=== PATIENT | male | born 1970 | race Caucasian/White ===

== ENCOUNTER 2016-11-28 21:49 | Inpatient (IN) | payer OTHER ==
[2016-11-28 21:50] VITALS: O2SAT 100
[2016-11-28 22:00] VITALS: O2SAT 100
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
[2016-11-28] MEDS ORDERED: IOHEXOL 350 MG/ML 10 ML VIAL (for RAD DIAG) IVCONTRAST ONE (22:14)
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
[2016-11-28 22:24] LABS: I-STAT POTASSIUM 3.7 MMOL/L (3.5-4.9)
[2016-11-28 22:25] LABS: BASOPHIL # 0.1 TH/MM3 (0-0.2); BASOPHIL % 0.9 % (0.0-2.0); EOSINOPHIL # 0.2 TH/MM3 (0-0.4); EOSINOPHIL % 1.7 % (0.0-4.0); HEMATOCRIT 45.4 % (39.0-51.0); HEMO FLAGS DIFF FINAL; LYMPH % 28.6 % (9.0-44.0); LYMPHOCYTE # 3.2 TH/MM3 (1.0-4.8); MEAN CELL VOLUME 89.3 FL (80.0-100.0); MEAN CORPUSCULAR HEMOGLOBIN 30.2 PG (27.0-34.0); MEAN CORPUSCULAR HGB CONC 33.8 % (32.0-36.0); MONO % 6.2 % (0.0-8.0); NEUT % 62.6 % (16.0-70.0); PLATELET COUNT 257 TH/MM3 (150-450); RED BLOOD COUNT 5.09 MIL/MM3 (4.50-5.90); RED CELL DISTRIBUTION WIDTH 13.1 % (11.6-17.2); WHITE BLOOD COUNT 11.2 TH/MM3 (4.0-11.0)
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
[2016-11-28 22:30] VITALS: O2SAT 100
[2016-11-28 22:40] LABS: APTT (PATIENT) 22.4 SEC (24.3-30.1); INTERNATIONAL NORMALIZED RATIO 0.9 RATIO; PROTHROMBIN TIME - PATIENT 10.2 SEC (9.8-11.6)
[2016-11-28] MEDS ORDERED: CHLORHEXIDINE GLUCONATE 2 % 1 PACK (2 CLOTHS) TOP PRN (22:45)
[2016-11-28] MEDS ORDERED: MISCELLANEOUS NURSING INFORMATION XX SCH (22:45)
[2016-11-28] MEDS ORDERED: SODIUM CHLORIDE 0.9% FLUSH 10 ML FLUSH IV FLUSH PRN (22:45)
[2016-11-28] MEDS ORDERED: ENALAPRILAT 1.25 MG/ML VIAL IV PRN (22:45)
[2016-11-28] MEDS ORDERED: ONDANSETRON HCL 4 MG/2 ML VIAL IV PRN (22:45)
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
[2016-11-28] MEDS: SODIUM CHLOR 0.9% 1000 ML INJ 1,000 ML IV SCH (22:56)
[2016-11-28] MEDS: CHLORHEXIDINE GLUCONATE 2 % 1 PACK (2 CLOTHS) TOP SCH (22:57)
[2016-11-28 23:20] LABS: BLOOD, URINE MOD (NEG); GLUCOSE,URINE NEG (NEG); KETONE, URINE NEG (NEG); MUCUS URINE FEW /lpf (OCC); NITRITE,URINE NEG (NEG); PH, URINE 5.5 (5.0-8.5); URINE COLOR YELLOW (YELLW/STRAW)
[2016-11-28 23:24] LABS: COMMENT (UR) CATH-CULT NOT IND; CULTURE IF INDICATED CATH CULTURE NOT IND
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
--- NOTE | 2016-11-28 23:56 | PD.PROCEDR ---
Procedure Note Procedure Subclavian central line placement A time-out was completed verifying correct patient, procedure, site, positioning , and special equipment if applicable. The patient was placed in a dependent position appropriate for central line placement based on the vein to be cannulated. The patients left shoulder was prepped and draped in sterile fashion. 1% Lidocaine was used to anesthetize the surrounding skin area. A triple lumen 9-[place] Cordis catheter was introduced into the the left subclavian vein using the Seldinger technique. The catheter was threaded smoothly over the guide wire and appropriate blood return was obtained. Each lumen of the catheter was evacuated of air and flushed with sterile saline. The catheter was then sutured in place to the skin and a sterile dressing applied. Perfusion to the extremity distal to the point of catheter insertion was checked and found to be adequate. Estimated Blood Loss: 1ml The patient tolerated the procedure well and there were no complications. Moise Licea MD Nov 28, 2016 23:56
--- NOTE | 2016-11-28 23:56 | PD.PROCEDR ---
Procedure Note Procedure Procedure: CHEST TUBE Indication: Left Large pneumothorax Performed by: Moise Rhoades time out procedure was performed Initials Consent obtained JV Correct patient JV Correct procedure JV Correct site JV Correct positioning JV Correct supplies JV Patient was positioned, prepped and draped in usual sterile fashion. ccs 1% Lidocaine was used to anesthetize the area. An incision was made and blunt dissection was performed and curved forceps were used to enter the pleural space. A 10 fr chest tube was placed to 15cm. The tube was secured and taped. A chest xray was ordered to evaluate for placement of the chest tube. A pigtail catheter was placed using the seldinger technique. Initial Fluid Removed: 50 milliliters Patient tolerated the procedure well and there were no complications. Moise Licea MD Nov 28, 2016 23:56
[2016-11-28] MEDS: PANTOPRAZOLE SODIUM 40 MG VIAL IVP SCH (23:59)
[2016-11-29] VITALS (20 sets, daily range): BP systolic 98–159; BP diastolic 57–93; PULSE 60–87; RESP 14–16; TEMP 99.7–100.2; O2SAT 96–100
[2016-11-29] MEDS ORDERED: fentaNYL DRIP 250 ML IV PRN
[2016-11-29] MEDS ORDERED: PROPOFOL 1000 MG/100 ML INJ 100 ML IV PRN
[2016-11-29 00:02] LABS: BLOOD GAS CARBOXYHEMOGLOBIN 1.1 % (0-4); BLOOD GAS HCO3 25 mmol/L (22-26); BLOOD GAS METHEMOGLOBIN 0.8 % (0-2); BLOOD GAS O2 HGB SATURATION 97 % (90-100); BLOOD GAS OXYGEN CONTENT 20.2 Vol % (12.0-20.0); BLOOD GAS PCO2 48 mmHg (38-42); BLOOD GAS PO2 147 mmHg (61-120); BLOOD GAS TOTAL HGB 14.6 G/DL (12.0-16.0); CRITICAL VALUE NO; DRAW SITE RT RADIAL; FIO2 50 %; NUMBER OF ARTERIAL PUNCTURES 1; OXYGEN DEVICE VENTILATOR; STAT NO; TEMP CORR TO 98.6; ULNAR PULSE PRESENT; VENT SETTINGS 14/550/5PEEP
[2016-11-29] MEDS: fentaNYL 2,500 MCG/NS 250 ML IV SCH ×2 (00:34→10:30)
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
[2016-11-29] MEDS: PROPOFOL 1000 MG/100 ML IV SCH ×4 (00:57→12:01)
[2016-11-29] MEDS: levETIRAcetam INJ 750 MG in SODIUM CHLORIDE 0.9% INJ 100 ML IV SCH ×2 (03:14→16:15)
--- NOTE | 2016-11-29 05:05 | RADRPT ---
EXAM DATE/TIME: 11/29/2016 04:14 [facility] COMPARISON: No previous studies available for comparison. INDICATIONS : Follow up trauma. RADIATION DOSE: 56.35 CTDIvol (mGy) ; Tabletop CT Head MEDICAL HISTORY : Non-responsive. SURGICAL HISTORY : Non-responsive. ENCOUNTER: Subsequent ACUITY: 1 day PAIN SCALE: Non-responsive LOCATION: cranial TECHNIQUE: Multiple contiguous axial images were obtained of the head. Using automated exposure control and adj ustment of the mA and/or kV according to patient size, radiation dose was kept as low as reasonably a chievable to obtain optimal diagnostic quality images. DICOM format image data is available electro nically for review and comparison. FINDINGS: CEREBRUM: The ventricles are normal in size for age. There may be a small amount of hemorrhage in the left occi pital horn. Previously noted subarachnoid hemorrhage on the right is slightly less apparent on the cu rrent exam. No extra-axial fluid collections are seen. POSTERIOR FOSSA: The cerebellum and brainstem are intact. The 4th ventricle is midline. The cerebellopontine angle i s unremarkable. EXTRACRANIAL: The visualized portion of the orbits is intact. SKULL: The calvaria is intact. No evidence of skull fracture. CONCLUSION: 1. Previously noted small subarachnoid hemorrhage in the right parietal region is slightly less appar ent on the current exam. There is also trace intraventricular hemorrhage on the left posteriorly. No mass effect or shift. No hydrocephalus. Rufino Gonsalez MD on November 29, 2016 at 5:00 Board Certified Radiologist. This report was verified electronically.
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
--- NOTE | 2016-11-29 05:50 | RADRPT ---
EXAM DATE/TIME: 11/29/2016 03:43 [facility] COMPARISON: CHEST SINGLE AP, November 28, 2016, 23:48. INDICATIONS : Evaluate for pneumothorax MEDICAL HISTORY : None. SURGICAL HISTORY : None. ENCOUNTER: Subsequent ACUITY: 2 days PAIN SCORE: Non-responsive. LOCATION: Bilateral chest FINDINGS: A single view of the chest demonstrates endotracheal tube in size and position. NG in the stomach. Ce ntral line in superior vena cava. Subsegmental basilar airspace disease. Small caliber left chest tub e without pneumothorax. CONCLUSION: 1. Small caliber left chest tube present without pneumothorax. Subsegmental basilar airspace disease. Endotracheal tube, nasogastric tube and left central line in good position. Rufino Gonsalez MD on November 29, 2016 at 5:47 Board Certified Radiologist. This report was verified electronically.
[2016-11-29 05:56] LABS: AUTOMATED NEUTROPHIL # 6.6 TH/MM3 (1.8-7.7); BASOPHIL % 0.4 % (0.0-2.0); EOSINOPHIL % 0.2 % (0.0-4.0); HEMATOCRIT 38.1 % (39.0-51.0); HEMO FLAGS DIFF FINAL; LYMPH % 9.3 % (9.0-44.0); LYMPHOCYTE # 0.7 TH/MM3 (1.0-4.8); MEAN CELL VOLUME 88.3 FL (80.0-100.0); MEAN CORPUSCULAR HEMOGLOBIN 30.8 PG (27.0-34.0); MEAN CORPUSCULAR HGB CONC 34.9 % (32.0-36.0); MONO % 7.7 % (0.0-8.0); NEUT % 82.4 % (16.0-70.0); PLATELET COUNT 172 TH/MM3 (150-450); RED BLOOD COUNT 4.32 MIL/MM3 (4.50-5.90); RED CELL DISTRIBUTION WIDTH 12.9 % (11.6-17.2)
[2016-11-29 06:38] LABS: ANION GAP 7 MEQ/L (5-15); AST (GOT) 49 U/L (15-37); BICARBONATE 26.4 MEQ/L (21.0-32.0); BLOOD UREA NITROGEN 15 MG/DL (7-18); CHLORIDE 106 MEQ/L (98-107); GLOMERULAR FILTRATION RATE 38 ML/MIN (>89); POTASSIUM 3.9 MEQ/L (3.5-5.1); SODIUM (NA) 139 MEQ/L (136-145)
[2016-11-29 06:40] LABS: ALT (GPT) 50 U/L (12-78)
[2016-11-29 06:42] LABS: ALKALINE PHOSPHATASE 44 U/L (45-117); TOTAL BILIRUBIN ADULT 0.5 MG/DL (0.2-1.0)
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
[2016-11-29] MEDS: SODIUM CHLOR 0.9% 1000 ML INJ 1,000 ML IV SCH ×2 (08:38→18:40)
[2016-11-29] MEDS: BACITRACIN TOP OINT 15 GM TUBE TOP SCH ×2 (09:00→21:00)
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
[2016-11-29] MEDS ORDERED: PROPOFOL 1000 MG/100 ML IV PRN (15:45)
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
[2016-11-29] MEDS ORDERED: RESP: ALBUTEROL 2.5 MG/IPRATROPIUM 0.5 MG NEB (PRN) NEB (17:00)
[2016-11-29] MEDS ORDERED: BISACODYL 10 MG SUPP RECTAL PRN (17:00)
[2016-11-29] MEDS: LACTULOSE SYRUP 20 GM/30 ML CUP PO SCH (18:28)
[2016-11-29] MEDS: CHLORHEXIDINE 0.12% (ORAL KIT) 15 ML CUP MT SCH (19:37)
[2016-11-29] MEDS: DOCUSATE SODIUM 50 MG/SENNA 8.6 MG TAB PO SCH (21:38)
[2016-11-29] MEDS: RESP: ALBUTEROL 2.5 MG/IPRATROPIUM 0.5 MG NEB (SCH) NEB (21:53)
[2016-11-29] MEDS: PANTOPRAZOLE SODIUM 40 MG VIAL IVP SCH (22:00)
[2016-11-30] VITALS (18 sets, daily range): BP systolic 135–155; BP diastolic 72–92; PULSE 67–108; RESP 12–27; TEMP 98–100; O2SAT 94–100
[2016-11-30] MEDS: levETIRAcetam INJ 500 MG in SODIUM CHLORIDE 0.9% INJ 100 ML IV SCH ×2 (02:33→14:04)
[2016-11-30] MEDS ORDERED: levETIRAcetam INJ 500 MG in SODIUM CHLORIDE 0.9% INJ 100 ML IV SCH (03:00)
[2016-11-30] MEDS: RESP: ALBUTEROL 2.5 MG/IPRATROPIUM 0.5 MG NEB (SCH) NEB ×4 (03:32→21:58)
[2016-11-30] MEDS: CHLORHEXIDINE GLUCONATE 2 % 1 PACK (2 CLOTHS) TOP SCH (04:00)
[2016-11-30] MEDS: SODIUM CHLOR 0.9% 1000 ML INJ 1,000 ML IV SCH ×2 (04:39→14:05)
[2016-11-30 05:14] LABS: AUTOMATED NEUTROPHIL # 5.8 TH/MM3 (1.8-7.7); BASOPHIL % 0.3 % (0.0-2.0); EOSINOPHIL # 0.1 TH/MM3 (0-0.4); EOSINOPHIL % 1.4 % (0.0-4.0); HEMO FLAGS DIFF FINAL; LYMPHOCYTE # 0.8 TH/MM3 (1.0-4.8); MEAN CELL VOLUME 88.9 FL (80.0-100.0); MEAN CORPUSCULAR HGB CONC 33.8 % (32.0-36.0); MONO % 8.1 % (0.0-8.0); NEUT % 79.2 % (16.0-70.0); PLATELET COUNT 134 TH/MM3 (150-450); RED BLOOD COUNT 4.05 MIL/MM3 (4.50-5.90); RED CELL DISTRIBUTION WIDTH 12.9 % (11.6-17.2); WHITE BLOOD COUNT 7.3 TH/MM3 (4.0-11.0)
[2016-11-30 05:45] LABS: ANION GAP 6 MEQ/L (5-15); AST (GOT) 28 U/L (15-37); BICARBONATE 26.1 MEQ/L (21.0-32.0); BLOOD UREA NITROGEN 13 MG/DL (7-18); CHLORIDE 110 MEQ/L (98-107); GLOMERULAR FILTRATION RATE 57 ML/MIN (>89); POTASSIUM 3.7 MEQ/L (3.5-5.1); SODIUM (NA) 142 MEQ/L (136-145)
[2016-11-30 05:46] LABS: ALT (GPT) 35 U/L (12-78)
[2016-11-30 05:48] LABS: ALKALINE PHOSPHATASE 42 U/L (45-117); TOTAL BILIRUBIN ADULT 0.5 MG/DL (0.2-1.0)
--- NOTE | 2016-11-30 06:13 | RADRPT ---
EXAM DATE/TIME: 11/30/2016 04:48 [facility] COMPARISON: CHEST SINGLE AP, November 29, 2016, 3:43. INDICATIONS : Short of breath. MEDICAL HISTORY : None. SURGICAL HISTORY : None. ENCOUNTER: Subsequent ACUITY: 3 days PAIN SCORE: Non-responsive. LOCATION: Bilateral chest FINDINGS: Small caliber left chest tube present without significant pneumothorax. The left central line is in s uperior vena cava. Nasogastric tube coiled in the stomach. Endotracheal tube in good position. Minima l basilar subsegmental opacity slightly improved from November 29. No significant effusion. CONCLUSION: 1. Support apparatus in satisfactory position. Small caliber left chest tube without pneumothorax. Mi nimal basilar atelectasis. Rufino Gonsalez MD on November 30, 2016 at 6:09 Board Certified Radiologist. This report was verified electronically.
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
[2016-11-30] MEDS ORDERED: ATOR10TA15 PO (09:48)
[2016-11-30] MEDS: DOCUSATE SODIUM 50 MG/SENNA 8.6 MG TAB PO SCH ×2 (09:50→20:43)
[2016-11-30] MEDS: LACTULOSE SYRUP 20 GM/30 ML CUP PO SCH (09:51)
[2016-11-30] MEDS: CHLORHEXIDINE 0.12% (ORAL KIT) 15 ML CUP MT SCH (09:51)
[2016-11-30] MEDS: BACITRACIN TOP OINT 15 GM TUBE TOP SCH ×2 (09:51→20:45)
--- NOTE | 2016-11-30 10:23 | HHI.PR ---
Neuropsych Emotional Emotional: UnabletoAssess: Emotional, Anxious/Fearful, Depressed/Sad, Hostile/ Resentful, Irritable/Angry/Frustrate, Labile, Constricted/Blunted Behavior Behavior: Intact: Impulsive/Agitated Cognitive Cognitive: Unable to Asses: Cognitive, Attention/Concentration, Confused/ Orientation, Insight/Awareness, Judgement/Problem-Solving, Memory Psychosocial Psychosocial: Unable to Asses: Psychosocial, Family/Other Adjustment, Realistic Expectation, Self-Esteem/Confidence Progress Notes/Response to Tx Contents of Sessions: Adjustment, Level of Consciousness Time with Patient: 15 minutes Premorbid psychological status Premorbid Cognitive, Emotional and Behavioral Status: Unable to Assess. The patient was intubated but awake, but not able to respond to questions. Behavioral Reactions of Patient and Family/Support System: Deferred. The patients family is experiencing ongoing issues of adjustment given the nature of the injury, and this aspect of recovery will require ongoing monitoring. Emotional/Behavioral Status of Patient and Family/Support System: Deferred. Pertinent issues, if appropriate to this patients clinical care, are described in detail above. Maximizing acute care outcome It is recommended that the patient be monitored for emergent behavioral impulsivity as the medical condition evolves. This patients neuropathological challenges may limit their rehabilitation potential going forward, and these challenges will require specialized therapeutic skills to maximize outcome. Additionally, the patients family is experiencing ongoing issues of adjustment given the traumatic nature of the injury, and they may benefit from ongoing psychological assistance. Anticipated Problems Ongoing areas of concern will include behavioral impulsivity, lack of insight and judgment, which is expected to improve with time and treatment. Presently , the patient remains intubated but awake. Treatment Plan This clinician will continue to follow with you throughout the course of this patients acute care treatment, and I will be available to meet with the patient s family/support system to facilitate their understanding and the ongoing care of their family member. The goals of neuropsychological intervention shall be both educational and supportive to the family/support system as is deemed clinically appropriate. [facility] Level: V:Confused-non agitated Impression This patient suffered a traumatic brain injury and is presently intubated and sedated. Diagnosis: (1) Major neurocognitive disorder as late effect of traumatic brain injury without behavioral disturbance Progress Note Narrative Ongoing follow-up of patient seen during daily trauma rounds. This is day 2 post injury. The patient is awake, somewhat alert and follows basic commands. He remains intubated. He appears neurobehaviorally consistent with a [place]. I will continue to follow. Panchito Bains PhD Nov 30, 2016 10:23 am
[2016-11-30] MEDS: fentaNYL 2,500 MCG/NS 250 ML IV SCH (10:47)
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
[2016-11-30] MEDS: ACETAMINOPHEN 1000 MG/100 ML VIAL IV SCH ×2 (12:27→17:58)
[2016-11-30] MEDS: HYDROmorphone HCL PF 1 MG/ML VIAL IV PUSH PRN ×3 (13:13→20:44)
[2016-11-30] MEDS: METHOCARBAMOL 500 MG TAB PO SCH ×2 (13:13→22:10)
[2016-11-30] MEDS ORDERED: REMOVE OLD PATCH T-DERMAL SCH (14:00)
[2016-11-30] MEDS ORDERED: fentaNYL 50 MCG/HR PATCH TOPICAL SCH (14:00)
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
[2016-11-30] MEDS ORDERED: HYDROmorphone HCL PF 1 MG/ML VIAL IV PUSH ONE (15:45)
[2016-11-30] MEDS ORDERED: SUCRALFATE 1 GM/10 ML CUP PO PRN (18:00)
[2016-11-30] MEDS: ATORVASTATIN 10 MG TAB PO SCH (20:44)
[2016-11-30] MEDS: PANTOPRAZOLE SODIUM 40 MG VIAL IVP SCH (22:10)
[2016-12-01] VITALS (7 sets, daily range): BP systolic 151–186; BP diastolic 88–97; PULSE 71–88; RESP 16–22; TEMP 97.8–98.3; O2SAT 92–97
[2016-12-01] MEDS: HYDROmorphone HCL PF 1 MG/ML VIAL IV PUSH PRN ×2 (01:43→04:58)
[2016-12-01] MEDS: ACETAMINOPHEN 1000 MG/100 ML VIAL IV SCH ×2 (01:43→05:01)
[2016-12-01] MEDS: levETIRAcetam INJ 500 MG in SODIUM CHLORIDE 0.9% INJ 100 ML IV SCH ×2 (03:15→15:05)
[2016-12-01] MEDS: CHLORHEXIDINE GLUCONATE 2 % 1 PACK (2 CLOTHS) TOP SCH (04:00)
[2016-12-01] MEDS: METHOCARBAMOL 500 MG TAB PO SCH ×3 (04:58→22:30)
--- NOTE | 2016-12-01 06:58 | RADRPT ---
EXAM DATE/TIME: 12/01/2016 06:23 [facility] COMPARISON: CHEST SINGLE AP, November 30, 2016, 4:48. INDICATIONS : Pneumothorax. MEDICAL HISTORY : Chest tube, left. SURGICAL HISTORY : None. ENCOUNTER: Subsequent ACUITY: 3 days PAIN SCORE: 4/10 LOCATION: Left chest FINDINGS: A single view of the chest demonstrates left central line superior vena cava. Basilar airspace diseas e, left greater than right. Small caliber left chest tube without pneumothorax. Extubation. CONCLUSION: 1. Interval extubation. Mild basilar airspace disease. Left chest tube without pneumothorax. Left billy tral line in superior vena cava. Rufino Gonsalez MD on December 01, 2016 at 6:56 Board Certified Radiologist. This report was verified electronically.
[2016-12-01 07:12] LABS: AUTOMATED NEUTROPHIL # 6.8 TH/MM3 (1.8-7.7); BASOPHIL % 0.2 % (0.0-2.0); EOSINOPHIL # 0.1 TH/MM3 (0-0.4); HEMATOCRIT 34.8 % (39.0-51.0); LYMPH % 7.7 % (9.0-44.0); LYMPHOCYTE # 0.6 TH/MM3 (1.0-4.8); MEAN CELL VOLUME 89.1 FL (80.0-100.0); MEAN CORPUSCULAR HEMOGLOBIN 30.2 PG (27.0-34.0); MEAN CORPUSCULAR HGB CONC 33.9 % (32.0-36.0); MONO % 7.8 % (0.0-8.0); NEUT % 83.3 % (16.0-70.0); PLATELET COUNT 118 TH/MM3 (150-450); RED CELL DISTRIBUTION WIDTH 12.9 % (11.6-17.2); WHITE BLOOD COUNT 8.1 TH/MM3 (4.0-11.0)
[2016-12-01 07:21] LABS: HEMO FLAGS AUTO DIFF
[2016-12-01 07:33] LABS: ANION GAP 6 MEQ/L (5-15); AST (GOT) 50 U/L (15-37); BICARBONATE 27.4 MEQ/L (21.0-32.0); BLOOD UREA NITROGEN 8 MG/DL (7-18); CHLORIDE 104 MEQ/L (98-107); GLOMERULAR FILTRATION RATE 64 ML/MIN (>89); POTASSIUM 3.6 MEQ/L (3.5-5.1); SODIUM (NA) 137 MEQ/L (136-145)
[2016-12-01 07:34] LABS: ALT (GPT) 35 U/L (12-78)
[2016-12-01 07:37] LABS: ALKALINE PHOSPHATASE 40 U/L (45-117); TOTAL BILIRUBIN ADULT 0.8 MG/DL (0.2-1.0)
[2016-12-01] MEDS: DOCUSATE SODIUM 50 MG/SENNA 8.6 MG TAB PO SCH ×2 (08:19→19:41)
[2016-12-01] MEDS: LACTULOSE SYRUP 20 GM/30 ML CUP PO SCH (08:19)
[2016-12-01] MEDS: RESP: ALBUTEROL 2.5 MG/IPRATROPIUM 0.5 MG NEB (SCH) NEB ×3 (08:55→22:04)
[2016-12-01 09:28] LABS: SCAN/DIFF AUTO DIFF CONFIRMED
[2016-12-01] MEDS ORDERED: BISACODYL 10 MG SUPP RECTAL ONE (09:30)
[2016-12-01] MEDS ORDERED: BISACODYL EC 5 MG TABEC PO ONE (09:30)
[2016-12-01] MEDS: oxyCODONE/ACETAMINOPHEN 5 MG/325 MG TAB PO PRN ×4 (10:01→23:43)
[2016-12-01] MEDS: BACITRACIN TOP OINT 15 GM TUBE TOP SCH ×2 (10:02→19:42)
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
--- NOTE | 2016-12-01 10:54 | HHI.PR ---
Neuropsych Behavior Behavior: Intact: Coping/Acceptance, Cooperative w/ Treatment, Motivation Cognitive Cognitive: Mild: Insight/Awareness, Moderate: Attention/Concentration, Confused /Orientation Progress Notes/Response to Tx Contents of Sessions: Adjustment, Level of Consciousness Time with Patient: 15 minutes Premorbid psychological status Premorbid Cognitive, Emotional and Behavioral Status: Unable to Assess. The patient was intubated but awake, but not able to respond to questions. Behavioral Reactions of Patient and Family/Support System: Deferred. The patients family is experiencing ongoing issues of adjustment given the nature of the injury, and this aspect of recovery will require ongoing monitoring. Emotional/Behavioral Status of Patient and Family/Support System: Deferred. Pertinent issues, if appropriate to this patients clinical care, are described in detail above. Maximizing acute care outcome It is recommended that the patient be monitored for emergent behavioral impulsivity as the medical condition evolves. This patients neuropathological challenges may limit their rehabilitation potential going forward, and these challenges will require specialized therapeutic skills to maximize outcome. Additionally, the patients family is experiencing ongoing issues of adjustment given the traumatic nature of the injury, and they may benefit from ongoing psychological assistance. Anticipated Problems Ongoing areas of concern will include behavioral impulsivity, lack of insight and judgment, which is expected to improve with time and treatment. Presently , the patient remains intubated but awake. Treatment Plan This clinician will continue to follow with you throughout the course of this patients acute care treatment, and I will be available to meet with the patient s family/support system to facilitate their understanding and the ongoing care of their family member. The goals of neuropsychological intervention shall be both educational and supportive to the family/support system as is deemed clinically appropriate. [facility] Level: V:Confused-non agitated Impression This patient suffered a traumatic brain injury and is presently intubated and sedated. Diagnosis: (1) Major neurocognitive disorder as late effect of traumatic brain injury without behavioral disturbance Progress Note Narrative Ongoing follow-up of patient seen in daily trauma rounds. This is day 3 post injury. The patient is awake, alert but oriented only to person, place and situation. He is off sedation and extubated and neurologically intact. He is presently at [facility]. I will continue to follow.. Panchito Bains PhD Dec 01, 2016 10:54 am
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
[2016-12-01] MEDS: ATORVASTATIN 10 MG TAB PO SCH (19:41)
[2016-12-01] MEDS: PANTOPRAZOLE SODIUM 40 MG VIAL IVP SCH (23:00)
[2016-12-02] VITALS: BP 145/84; PULSE 87; RESP 20; TEMP 98.6; O2SAT 94
[2016-12-02] MEDS: levETIRAcetam INJ 500 MG in SODIUM CHLORIDE 0.9% INJ 100 ML IV SCH (03:09)
[2016-12-02] MEDS: oxyCODONE/ACETAMINOPHEN 5 MG/325 MG TAB PO PRN ×4 (03:34→20:17)
[2016-12-02] MEDS: RESP: ALBUTEROL 2.5 MG/IPRATROPIUM 0.5 MG NEB (SCH) NEB ×4 (03:36→20:22)
[2016-12-02] MEDS: METHOCARBAMOL 500 MG TAB PO SCH ×3 (05:35→21:38)
--- NOTE | 2016-12-02 07:20 | RADRPT ---
EXAM DATE/TIME: 12/02/2016 05:59 [facility] COMPARISON: CHEST SINGLE AP, December 01, 2016, 6:23. INDICATIONS : Short of breath, chest pain, evaluate pneumothorax MEDICAL HISTORY : SAH, pneumothorax, rib fracture SURGICAL HISTORY : None. ENCOUNTER: Subsequent ACUITY: 4 - 6 days PAIN SCORE: Non-responsive. LOCATION: Bilateral chest FINDINGS: Left subclavian central catheter line has been removed as well as left chest tube. There is persisten t airspace disease in the left base greater than the right the latter which is minimal. CONCLUSION: Removal left central venous catheter and left chest tube. Residual mild left basilar airspace disease Gm Crowley MD on December 02, 2016 at 7:17 Board Certified Radiologist. This report was verified electronically.
[2016-12-02 07:30] VITALS: BP 162/93; PULSE 78; RESP 16; TEMP 98.1; O2SAT 91
[2016-12-02 07:31] LABS: AUTOMATED NEUTROPHIL # 5.4 TH/MM3 (1.8-7.7); BASOPHIL % 0.6 % (0.0-2.0); EOSINOPHIL # 0.2 TH/MM3 (0-0.4); EOSINOPHIL % 2.8 % (0.0-4.0); LYMPH % 8.5 % (9.0-44.0); LYMPHOCYTE # 0.6 TH/MM3 (1.0-4.8); MEAN CELL VOLUME 87.6 FL (80.0-100.0); MEAN CORPUSCULAR HEMOGLOBIN 30.1 PG (27.0-34.0); MEAN CORPUSCULAR HGB CONC 34.3 % (32.0-36.0); MONO % 10.2 % (0.0-8.0); NEUT % 77.9 % (16.0-70.0); PLATELET COUNT 136 TH/MM3 (150-450); RED BLOOD COUNT 3.99 MIL/MM3 (4.50-5.90); RED CELL DISTRIBUTION WIDTH 12.7 % (11.6-17.2); WHITE BLOOD COUNT 6.9 TH/MM3 (4.0-11.0)
[2016-12-02 08:00] VITALS: BP 149/90; PULSE 69; RESP 16; TEMP 98.4; O2SAT 93
[2016-12-02 08:02] LABS: ANION GAP 5 MEQ/L (5-15); AST (GOT) 69 U/L (15-37); BICARBONATE 29.5 MEQ/L (21.0-32.0); BLOOD UREA NITROGEN 7 MG/DL (7-18); CHLORIDE 101 MEQ/L (98-107); GLOMERULAR FILTRATION RATE 71 ML/MIN (>89); POTASSIUM 3.3 MEQ/L (3.5-5.1); SODIUM (NA) 135 MEQ/L (136-145)
[2016-12-02 08:03] LABS: ALT (GPT) 44 U/L (12-78)
[2016-12-02 08:04] LABS: HEMO FLAGS AUTO DIFF
[2016-12-02 08:05] LABS: ALKALINE PHOSPHATASE 46 U/L (45-117); TOTAL BILIRUBIN ADULT 0.8 MG/DL (0.2-1.0)
[2016-12-02] MEDS ORDERED: POTASSIUM CHLORIDE 25 MEQ EFFERVESCENT TAB PO ONE (08:45)
[2016-12-02] MEDS: BACITRACIN TOP OINT 15 GM TUBE TOP SCH ×2 (09:00→20:11)
[2016-12-02 09:03] LABS: PLATELET ESTIMATE SMEAR LOW (NORMAL); PLATELET MORPHOLOGY ENLARGED (NORMAL); SCAN/DIFF AUTO DIFF CONFIRMED
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
[2016-12-02] MEDS: LACTULOSE SYRUP 20 GM/30 ML CUP PO SCH (09:26)
[2016-12-02] MEDS: DOCUSATE SODIUM 50 MG/SENNA 8.6 MG TAB PO SCH ×2 (09:27→20:11)
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
[2016-12-02 13:10] VITALS: BP 153/87; PULSE 83; RESP 16; TEMP 97; O2SAT 93
[2016-12-02] MEDS ORDERED: SUCR1S PO (13:41)
[2016-12-02] MEDS ORDERED: Lactulose Liq PO (13:41)
[2016-12-02] MEDS ORDERED: METH500T3 PO (13:41)
[2016-12-02] MEDS ORDERED: LEVE500 PO (13:41)
[2016-12-02] MEDS ORDERED: SENN1TAB PO (13:41)
[2016-12-02] MEDS ORDERED: FAMO20TA2 PO (13:41)
[2016-12-02] MEDS: QUEtiapine FUMARATE 25 MG TAB PO SCH ×2 (14:08→21:38)
[2016-12-02 20:00] VITALS: BP 169/96; PULSE 87; RESP 20; TEMP 99.8; O2SAT 93
[2016-12-02] MEDS: FAMOTIDINE 20 MG TAB PO SCH (20:11)
[2016-12-02] MEDS: ATORVASTATIN 10 MG TAB PO SCH (20:11)
[2016-12-02] MEDS: levETIRAcetam 500 MG TAB PO SCH (20:11)
[2016-12-03] VITALS: BP 159/94; PULSE 69; RESP 20; TEMP 99.2; O2SAT 93
[2016-12-03] MEDS: QUEtiapine FUMARATE 25 MG TAB PO SCH ×2 (04:26→14:45)
[2016-12-03] MEDS: METHOCARBAMOL 500 MG TAB PO SCH ×2 (04:26→14:45)
[2016-12-03] MEDS: oxyCODONE/ACETAMINOPHEN 5 MG/325 MG TAB PO PRN ×4 (04:26→15:11)
[2016-12-03] MEDS: RESP: ALBUTEROL 2.5 MG/IPRATROPIUM 0.5 MG NEB (SCH) NEB ×3 (04:28→16:02)
[2016-12-03 04:29] VITALS: O2SAT 92
[2016-12-03 08:20] VITALS: BP 154/102; PULSE 67; RESP 10; TEMP 97; O2SAT 95
[2016-12-03] MEDS: LACTULOSE SYRUP 20 GM/30 ML CUP PO SCH (10:10)
[2016-12-03] MEDS: levETIRAcetam 500 MG TAB PO SCH (10:10)
[2016-12-03] MEDS: FAMOTIDINE 20 MG TAB PO SCH (10:10)
[2016-12-03] MEDS: DOCUSATE SODIUM 50 MG/SENNA 8.6 MG TAB PO SCH (10:10)
[2016-12-03] MEDS: BACITRACIN TOP OINT 15 GM TUBE TOP SCH (10:12)
[2016-12-03] MEDS ORDERED: OXYC1TAB63 PO (10:20)
[2016-12-03 11:40] VITALS: PULSE 90; RESP 20; TEMP 98.3; O2SAT 94
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
[2016-12-03 12:00] VITALS: BP 154/82; PULSE 86; RESP 12; TEMP 97.4; O2SAT 92
[2016-12-03 12:22] VITALS: RESP 18
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
[2016-12-03] MEDS ORDERED: QUET1TAB7 PO (12:33)
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
[2016-12-03] MEDS ORDERED: QUEtiapine FUMARATE 25 MG TAB PO SCH (21:00)
[2016-12-16] MEDS ORDERED: SENN1TAB PO (10:35)
[2016-12-16] MEDS ORDERED: TRAZ50TA12 PO (10:35)
[2016-12-16] MEDS ORDERED: ATOR10TA15 PO (10:35)
[2016-12-16] MEDS ORDERED: LEVE500 PO (10:35)
[2016-12-16] MEDS ORDERED: FAMO20TA2 PO (10:35)
[2016-12-16] MEDS ORDERED: OXYC-392 PO (10:35)
[2016-12-16] MEDS ORDERED: QUET1TAB7 PO (10:35)
== END 2016-12-03 16:41 | DRG 963 ==
LOC: NEPI 21:49 → EDBD 22:38 → NEDA 22:38 → N03A 22:44 → N07A 11-30 22:25
PROVIDERS: ADMIT Surgery; ATTEND Surgery
PROC: 05H633Z Insertion of Infusion Device into Left Subclavian Vein, Percutaneous Approach (ICD-10-PCS; principal; 2016-11-28)
PROC: 5A1945Z Respiratory Ventilation, 24-96 Consecutive Hours (ICD-10-PCS; 2016-11-28)
PROC: 0T9B70Z Drainage of Bladder with Drainage Device, Via Natural or Artificial Opening (ICD-10-PCS; 2016-11-28)
PROC: 0W9B30Z Drainage of Left Pleural Cavity with Drainage Device, Percutaneous Approach (ICD-10-PCS; 2016-11-28)
DX: S06.6X0A Traumatic subarachnoid hemorrhage without loss of consciousness, initial encounter (principal); J96.00 Acute respiratory failure, unspecified whether with hypoxia or hypercapnia; S36.039A Unspecified laceration of spleen, initial encounter; S27.2XXA Traumatic hemopneumothorax, initial encounter; J69.0 Pneumonitis due to inhalation of food and vomit; S22.42XA Multiple fractures of ribs, left side, initial encounter for closed fracture; S27.322A Contusion of lung, bilateral, initial encounter; S37.012A Minor contusion of left kidney, initial encounter; S37.032A Laceration of left kidney, unspecified degree, initial encounter; V28.4XXA Motorcycle driver injured in noncollision transport accident in traffic accident, initial encounter; Y93.89 Activity, other specified; Y92.410 Unspecified street and highway as the place of occurrence of the external cause; Y90.3 Blood alcohol level of 60-79 mg/100 ml; S00.01XA Abrasion of scalp, initial encounter; F02.80 Dementia in other diseases classified elsewhere, unspecified severity, without behavioral disturbance, psychotic disturbance, mood disturbance, and anxiety
CPT/HCPCS: 32551; 36556; 36600; 70450; 71010; 71260; 72125; 72170; 74177; 80053; 80307; 81001; 82435; 82565; 82805; 82947; 84132; 84295; 84520; 85025; 85610; 85730; 86850; 86900; 86901; 87641; 90471; 94002; 94003; 94150; 94640; 94770; 96374; 99291; C9113; G0390; J0131; J1170; J1953; J2405; J3010; J7030; L0172; Q9967